=== PATIENT | male | born 1995 | race Caucasian/White ===

== ENCOUNTER 2017-05-24 23:53 | Emergency (ER) | payer SELFPAY ==
[2017-05-24] MEDS ORDERED: NORMAL SALINE 10 ML SYRINGE FLUSH IVP PRN (23:55)
--- NOTE | 2017-05-24 23:58 | PDOC ---
Syncope/Near-Syncope HPI - General Chief Complaint: Syncope / Near-Syncope Stated Complaint: SYNCOPE Date Seen by Provider: 05/24/17 Time Seen by Provider: 23:50 Source: POSITIVE: Patient, Other (friend) Exam Limitations: POSITIVE: No limitations Nurse's Notes Reviewed & Considered: Yes - History of Present Illness Initial Comments: The patient is a 21-year-old male who is brought to the emergency department by private vehicle after apparently passing out. He was apparently playing volleyball with his friends at [facility] today. He admits to having a drink there. He had apparently fallen and landed on his back. He subsequently had decided to go home. His friend states that he came home approximately a half an hour later and found the patient lying on the kitchen floor face down. He was not responding verbally at all at that time however was breathing and had a pulse. He started waking up some and his friend was able to get him into the car and bring him here to the emergency room. Patient states that he had just stood up to get a drink of water. He states he felt like his heart was pounding and he subsequently passed out. He states that he has the pounding heartbeat fairly frequently, at least once a day. By the time he arrived here in the emergency department he was awake and answering questions appropriately. He is complaining of headache. He does have blood on his face which appears to come from his nose. He reports some pain in his jaw. He is also having low back pain. He had fallen on his back while playing volleyball. He does however also have problems with his lower back even prior to tonight. He is generally healthy and does not take any medications. He states he had one drink tonight and denies illicit drug use. - Patient Home Medications Home Medications: Home Medications NK [No Home Medications Reported] 11/18/13 - Patient Allergies Allergies/Adverse Reactions: Allergies Allergy/AdvReac Type Severity Reaction Status Date / Time amoxicillin trihydrate Allergy Unknown NOT Verified 05/24/17 23:55 [From Amoxil] APPLICABLE Past Medical History - heen HEENT History: Other (please comment) Additional HEENT History: hx ruptured eardrum as a child Cardiovascular History: Denies History Respiratory History: Denies History Gastrointestinal History: Denies History Genitourinary History: Denies History Endocrine History: Denies History Musculoskeletal History: Denies History Prosthesis or Implant: No Neurological History: Denies History Blood Disorders: Denies History Psychiatric History: Depression, Other (please comment) Additional Psychiatric History: ATTEMPTED SUICIDE AT 13 YO History of Sexually Transmitted Diseases: No Cancer History: Denies History History of MDRO: Unknown History of Other Communicable Diseases: No Alcohol Use: Other Substance Use Type: None Previous Surgical History: Yes Type / Date of Surgery: TESTICULAR TORSION Anesthesia Reactions: No Malignant Hyperthermia: No Significant Family History: No pertinent family hx Past Medical History Reviewed: Reviewed - No Changes ROS - Limitations ROS Limitations: No Limitations Constitution: DENIES: Chills, Fever Cardiovascular: REPORTS: Heart Palpitations (He thinks he might of had some heart palpitations prior to this incident). DENIES: Chest Pain, Blood Pressure Problem, Edema Respiratory: DENIES: Cough Non Productive, Cough Productive, Hurts To Breathe, Shortness Of Breath Neurological: REPORTS: Headache. DENIES: Numbness, Weakness Gastrointestinal: DENIES: Abdominal Pain, Nausea, Vomitting Musculoskeletal: REPORTS: Back Pain (Lower back pain without radiation into his legs) Genitourinary: REPORTS: Denies Symptoms Eyes: REPORTS: Denies Symptoms ENT: REPORTS: Denies Symptoms Syncope / Near-Syncope Exam - General Appearance General Appearance: POSITIVE: Alert, Cooperative, No Acute Distress - HEENT HEENT: POSITIVE: Eyes Inspection Nml, Pharynx Inspect. Nml, PERRL, EOMI, Other ( He does have dried blood to his face which appears to come from his nose, he does have some mild tenderness over the temporomandibular joint bilaterally, no maxillary instability or loose teeth) - Neck / Back Neck/Back: POSITIVE: Supple, Non-Tender. NEGATIVE: Cervical Lymphadenopathy - Respiratory Respiratory: POSITIVE: No Respiratoy Distress, Breath Sounds Normal, Other (No chest wall pain) - Cardiovascular Cardiovascular: POSITIVE: Regular Rate and Rhythm, Heart Sounds Normal Peripheral Pulses: Dorsalis-pedis (R): 2+, Dorsalis-pedis (L): 2+ - Abdomen Abdomen: Soft: (All Quadrants), Denies Tenderness: (All Quadrants), No Distention: (All Quadrants) - Skin Skin: POSITIVE: Intact, No Rash - Extremities Extremity: Normal ROM: (All Extremities), Normal Inspection: (All Extremities) - Neuro / Psych Higher Functions: POSITIVE: Normal Speech, Normal Cognition Cranial Nerves: POSITIVE: Normal As Tested Sensorimotor: POSITIVE: No Motor Deficits, No Sensory Deficits Syncope/Near-Syncope Progress - Results Reviewed by me Xrays/CTs/US Reviewed by me: Yes Discussed with Radiologist: Yes Radiology Findings: CT scan of his head reveals no skull fracture or intracranial hemorrhage per radiologist. CT scan of the maxillofacial bones reveals no fracture per radiologist. CT scan of the cervical spine reveals no acute fracture per radiologist. CT scan of his abdomen and pelvis reveals no evidence of internal injury or fracture per radiologist. Lab Results Reviewed: Yes Lab Results:: Laboratory Results 05/24/17 05/25/17 Range/Units 23:52 01:43 WBC 9.48 (4.8-10.8) 10^3/uL RBC 4.54 L (4.70-6.10) 10^6/uL Hgb 15.5 (14.0-18.0) g/dL Hct 42.9 (42.0-52.0) % MCV 94.5 H (80-90) FL MCH 34.1 H (27-31) PG MCHC 36.1 (33-37) g/dL RDW Std Deviation 41.5 (39-50) fL RDW Coeff of Jose Luis 12.1 (11.5-14.5) % Plt Count 216 (140-350) 10*3/uL MPV 9.7 (7.4-12.2) FL Immature Gran % (Auto) 0.3 (0-5) % Neut % (Auto) 69.3 (50-80) % Lymph % (Auto) 21.7 (10-50) % [place] % (Auto) 7.9 (5-15) % Eos % (Auto) 0.5 (0-8) % Baso % (Auto) 0.3 (0-1) % Immature Gran # (Auto) 0.03 10*3/UL Neut # (Auto) 6.56 10*3/UL Lymph # (Auto) 2.06 10*3/uL [place] # (Auto) 0.75 (0.3-0.8) 10*3/UL Eos # (Auto) 0.05 10*3/UL Baso # (Auto) 0.03 10*3/UL WBC Morphology Comment Normal morphology (NORM) Plt Morphology Comment Normal morphology (NORM) RBC Morph Comment Normal morphology (NORM) Sodium 138 (135-145) meq/L Potassium 3.2 L (3.8-5.2) meq/L Chloride 102 (98-112) meq/L Carbon Dioxide 25 (23-33) meq/L Anion Gap 11 (5-20) BUN 16 (7-22) mg/dL Creatinine 1.2 (0.70-1.50) mg/dL Estimated GFR > 60 (>60 ml/min/1.73m(2)) BUN/Creatinine Ratio 13.33 (6-20) Glucose 88 (78-110) mg/dL Calculated Osmolality 285.0 (267-292) mOsm/kg Calcium 9.5 (8.7-10.7) mg/dL Total Bilirubin 0.8 (0.3-1.2) mg/dL AST 46 (21-57) IU/L ALT 41 (21-72) IU/L Alkaline Phosphatase 74 (38-126) IU/L Total Protein 7.7 (6.1-8.0) g/dL Albumin 4.7 (3.5-4.8) g/dL Globulin 3.1 (2.50-4.10) g/dL Albumin/Globulin Ratio 1.50 (1.3-2.0) mg/g Ur Collection Type Clean catch urine Urine Color Yellow Urine Clarity Clear (CLEAR) Urine pH 6.5 (5.0-8.5) Ur Specific [place] 1.003 (1.005-1.030) U Specif Grav (Refrac) 1.003 Urine Protein Negative (NEG) mg/dl Urine Glucose (UA) Negative (NEG) mg/dL Urine Ketones Negative (NEG) Urine Occult Blood Negative (NEG) Urine Nitrate Negative (NEG) Urine Bilirubin Negative (NEG) Urine Urobilinogen 0.2 (0.2) EU/dL Ur Leukocyte Esterase Negative (NEG) Ur Culture Indicated? Culture not set Urine Opiates Screen Negative (NEG) Ur Buprenorphine Negative (NEG) Ur Oxycodone Screen Negative (NEG) Urine Methadone Screen Negative (NEG) Ur Propoxyphene Screen Negative (NEG) Barbiturate Screen Negative (NEG) U Tricyclic Antidepress Negative (NEG) Phencyclidine Screen Negative (NEG) Amphetamines Screen Negative (NEG) U Methamphetamines Scrn Negative (NEG) Benzodiazepines Screen Negative (NEG) Cocaine Screen Negative (NEG) U Marijuana (THC) Screen Negative (NEG) Serum Alcohol < 10 (0-10) mg/dL EKG Interpreted/Reviewed By Me:: Yes EKG Interpretation:: POSITIVE: Normal Sinus Rhythm, Normal Rate, Normal QRS, Normal ST/T - Patient's Progress MDM / ED Course: The patient was evaluated in the emergency department after an apparent syncopal episode which occurred shortly after standing up to get a drink of water. His EKG here in the emergency department is normal. His lab work is all essentially unremarkable except for a slightly low potassium. CT scans of his head, facial bones, cervical spine, abdomen and pelvis and lumbar spine are all unremarkable. Vital signs remained stable and he is awake and alert. He is able to walk to the bathroom and urinate after CT without any difficulty. At this point the exact cause of his syncopal episode is not clear however could be some type of orthostatic hypotension from standing too fast, vagal reaction or possibly arrhythmia. The patient does report symptoms of palpitations fairly frequently and even daily. He appears to be stable for discharge home. He is advised to return to the emergency room if he develops any further passing out, any worsening or change in symptoms. He is advised to follow-up with the clinic in the next 2-3 days. Consideration for Holter monitor and/or echocardiogram. - Consult Counseled: POSITIVE: Patient, RE: Lab Results, RE: Radiology Results, RE: DX, RE : Need for F/U Patient Care Time - Estimated PCT Patient Care Time (In Minutes): 35 Vital Signs - Recent Vital Signs Vital Signs: Vital Signs (Last 8 hours) Temp Pulse Resp BP Pulse Ox 05/25/17 00:32 130/95 05/24/17 23:55 97.9 F 93 18 144/111 94 - VS Reviewed Vital Signs Reviewed: Yes Discharge Clinical Impression: Syncope Discharge Disposition: Discharged to Home Condition: Stable Patient Instructions Given at Discharge: Syncope (ED) Additional Instructions: The EKG done on your heart here in the emergency department was normal. Your blood work was all essentially normal except for a slightly low potassium which should not of caused her symptoms. We did do a CAT scan of your head, facial bones and neck which was all normal with no evidence of fracture or internal bleeding. The CAT scan of your lower back and internal organs was also normal and did not reveal any evidence of fracture. The exact cause of your passing out is unclear. This could have been related to low blood pressure from standing up too fast, overstimulation of the vagus nerve which is an autonomic nerve that controls her internal organs or possibly an irregular heartbeat. All of your testing done in the emergency department is reassuring currently. Would recommend follow-up with the clinic in the next 2-3 days. You'll likely need further testing which includes a Holter monitor to monitor your heart rhythm for a 24-hour period and possibly an echocardiogram which is an ultrasound of your heart. Recommend avoiding caffeine or other stimulants. Return to the emergency room if any further passing out, worsening or change in symptoms. Follow Up With: NONE,NONE [Primary Care Provider] -
[2017-05-25] MEDS: Sodium Chloride 0.9% 1,000 ML PRIMARY IV ONE (00:02)
--- NOTE | 2017-05-25 00:02 | EKG ---
[address] [address] Measurements Intervals [place] Rate: 85 P: 63 WA: 165 QRS: 61 QRSD: 100 T: 61 QT: 368 QTc: 410 Interpretive Statements SINUS RHYTHM WITH SINUS ARRHYTHMIA POSSIBLE LEFT VENTRICULAR HYPERTROPHY [VOLTAGE CRITERIA PLUS LAE OR QRS WIDENING] INTERPRETATION BASED ON A DEFAULT AGE OF 40 YEARS No previous ECG available for comparison Electronically Signed On 05-25-17 08:06:16 MDT by Wilman Butler MD [id number]
[2017-05-25 00:12] LABS: HEMATOCRIT 42.9 % (42.0-52.0); HEMOGLOBIN 15.5 g/dL (14.0-18.0); MEAN CORPUSCULAR HEMOGLOBIN 34.1 PG (27-31); MEAN CORPUSCULAR VOLUME 94.5 FL (80-90); RED BLOOD COUNT 4.54 10^6/uL (4.70-6.10)
[2017-05-25 00:13] LABS: BASOPHILS # (AUTO) 0.03 10*3/UL; BASOPHILS % (AUTO) 0.3 % (0-1); EOSINOPHILS # (AUTO) 0.05 10*3/UL; EOSINOPHILS % (AUTO) 0.5 % (0-8); LYMPHOCYTES # (AUTO) 2.06 10*3/uL; MEAN CORPUSCULAR HGB CONC 36.1 g/dL (33-37); MEAN PLATELET VOLUME 9.7 FL (7.4-12.2); MONOCYTES # (AUTO) 0.75 10*3/UL (0.3-0.8); MONOCYTES % (AUTO) 7.9 % (5-15); NEUTROPHILS # (AUTO) 6.56 10*3/UL; NEUTROPHILS % (AUTO) 69.3 % (50-80); PLATELET MORPHOLOGY COMMENT NORMAL MORPHOLOGY (NORM); RBC MORPHOLOGY COMMENT NORMAL MORPHOLOGY (NORM); WBC MORPHOLOGY COMMENT NORMAL MORPHOLOGY (NORM)
[2017-05-25 00:14] LABS: BLOOD UREA NITROGEN 16 mg/dL (7-22); BUN/CREATININE RATIO 13.33 (6-20); CALCIUM 9.5 mg/dL (8.7-10.7); EST GLOMERULAR FILTRATION > 60 (>60 ml/min/1.73m(2)); SERUM ALBUMIN 4.7 g/dL (3.5-4.8)
[2017-05-25 00:23] VITALS: RESP 18; TEMP 97.9
--- NOTE | 2017-05-25 01:29 | DI ---
HISTORY: Syncope episode. Bloody nose from the fall. COMPARISON: None available. TECHNIQUE: Unenhanced images of the brain were obtained and submitted for interpretation. FINDINGS: No acute intracranial hemorrhage. No mass effect or midline shift. The ventricles, sulci , and cisterns are within normal limits for age. The booth-white matter differentiation is preserved with no evidence of acute infarct. No aggressive osseous lesion or depressed skull fracture. Paranasal sinuses and mastoid air cells ar e clear. Vascular structures are intact. Orbits and facial soft tissues are unremarkable. IMPRESSION: 1. No acute intracranial findings.
--- NOTE | 2017-05-25 01:34 | DI ---
HISTORY: Syncope episode. Bloody nose from the fall. COMPARISON: None available. TECHNIQUE: Unenhanced images of the facial bones were obtained and submitted for interpretation. FINDINGS: There is no acute displaced fracture of the mandible, nasal bones, maxillary sinus ochoa, zygomatic arches, orbital ochoa, or lamina papyracea. The paranasal sinuses and mastoid air cells ar e clear. Orbits and facial soft tissues are within normal limits. IMPRESSION: 1. No acute facial bone fracture.
--- NOTE | 2017-05-25 01:37 | DI ---
HISTORY: Syncope episode. Bloody nose from the fall. Non-radiating neck pain. COMPARISON: None available. TECHNIQUE: Unenhanced images of the cervical spine were obtained and submitted for interpretation. FINDINGS: No acute fracture or malalignment of the cervical spine is present. There is normal align ment of the cervical lordosis. The paravertebral soft tissues are within normal limits. There are e neda multilevel degenerative endplate changes without significant osseous central canal stenosis or n eural foraminal narrowing. The imaged portions of the mastoid air cells are clear. There is no bulky cervical lymphadenopathy. The thyroid gland exhibits normal CT morphology. The lung apices are clear. IMPRESSION: 1. No acute fracture or malalignment of the cervical spine. 2. Straightening of the normal cervical lordosis which can be positional or secondary to muscle spasm induced by pain. 3. Early multilevel degenerative disc disease.
[2017-05-25 01:39] LABS: BILIRUBIN,URINE NEGATIVE (NEG); CLARITY,URINE CLEAR (CLEAR); COLOR,URINE YELLOW; GLUCOSE, URINE (UA) NEGATIVE (NEG); NITRATE,URINE NEGATIVE (NEG); OCCULT BLOOD,URINE NEGATIVE (NEG); PH,URINE 6.5 (5.0-8.5); PROTEIN,URINE NEGATIVE (NEG); UROBILINOGEN,URINE 0.2 EU/dL (0.2)
--- NOTE | 2017-05-25 01:41 | DI ---
HISTORY: Syncope episode. Bloody nose from the fall. Low back pain. COMPARISON: None available. TECHNIQUE: Enhanced images of the abdomen and pelvis were obtained and submitted for interpretation. FINDINGS: Positioning of the patient with arms at sides creates artifact that limits evaluation of f ine anatomic detail. Normal CT appearance of the liver, gallbladder, pancreas, spleen, kidneys, and adrenal glands. The u rinary bladder is significantly distended. Ureters are unremarkable. No radiopaque renal or collect ing system calculi. No evidence of obstructive uropathy. Hollow viscus organs demonstrate normal co urse and caliber. The appendix is within normal limits. There is no intraperitoneal free air or flu id. Vascular structures are intact. No abdominopelvic lymphadenopathy is present. There is no inguinal or umbilical hernia. The lung bases are clear. There are bilateral L5 pars defects without significant spondylolisthesis. Osseous structures are ot herwise within normal limits for age. IMPRESSION: 1. No CT evidence of acute intra-abdominal or pelvic pathology. 2. There are bilateral L5 pars defects without significant spondylolisthesis.
[2017-05-25 01:43] LABS: URINE SAMPLE TYPE CLEAN CATCH URINE; URINE SPECIFIC GRAVITY - MAN 1.003
[2017-05-25 01:49] LABS: AMPHETAMINE SCREEN NEGATIVE (NEG); CANNABINOID SCREEN,URINE NEGATIVE (NEG); COCAINE SCREEN NEGATIVE (NEG); METHADONE URINE SCREEN NEGATIVE (NEG); METHAMPHETAMINES SCREEN,URINE NEGATIVE (NEG); OPIATE SCREEN,URINE NEGATIVE (NEG)
== END 2017-05-25 02:14 | disposition home or self-care (01) ==
LOC: ER 23:53
DX: R55 Syncope and collapse (principal); M54.5 Low back pain; R68.84 Jaw pain; R51 Headache; R00.2 Palpitations; R04.0 Epistaxis
CPT/HCPCS: 70450; 70486; 72125; 74177; 80053; 80305; 80320; 81003; 82948; 85025; 93005; 93010; 96360; 99284; J7030

== ENCOUNTER → 2017-05-28 | Outpatient (CLI) | payer OTHER ==
--- NOTE | 2017-05-28 12:43 | EKG ---
[address] [address] Measurements Intervals [place] Rate: 49 P: 34 ME: 151 QRS: 63 QRSD: 102 T: 78 QT: 422 QTc: 392 Interpretive Statements SINUS BRADYCARDIA WITH OCCASIONAL VENTRICULAR PREMATURE COMPLEXES Compared to ECG 05/24/2017 23:55:08 Ventricular premature complex(es) now present Sinus rhythm no longer present Sinus arrhythmia no longer present Electronically Signed On 05-28-17 14:43:26 MDT by Daren Mon [id number]
[2017-05-28 12:45] LABS: BLOOD UREA NITROGEN 13 mg/dL (7-22); BUN/CREATININE RATIO 11.81 (6-20); CALCIUM 9.3 mg/dL (8.7-10.7); EST GLOMERULAR FILTRATION > 60 (>60 ml/min/1.73m(2)); SERUM ALBUMIN 4.4 g/dL (3.5-4.8)
[2017-05-28 13:52] LABS: HEMATOCRIT 44.2 % (42.0-52.0); HEMOGLOBIN 15.1 g/dL (14.0-18.0); MEAN CORPUSCULAR HEMOGLOBIN 33.3 PG (27-31); MEAN CORPUSCULAR HGB CONC 34.2 g/dL (33-37); MEAN CORPUSCULAR VOLUME 97.4 FL (80-90); MEAN PLATELET VOLUME 9.5 FL (7.4-12.2); RED BLOOD COUNT 4.54 10^6/uL (4.70-6.10)
[2017-05-28 13:55] LABS: BAND NEUTROPHILS % 0 % (0-10); BASOPHILS % (MANUAL) 1 % (0-1); EOSINOPHILS % (MANUAL) 5 % (0-8); LYMPHOCYTES % (MANUAL) 52 % (10-50); MONOCYTES % (MANUAL) 5 % (0-12); NEUTROPHILS % (MANUAL) 37 % (50-80)
[2017-05-28 13:56] LABS: PLATELET MORPHOLOGY COMMENT NORMAL MORPHOLOGY (NORM); RBC MORPHOLOGY COMMENT NORMAL MORPHOLOGY (NORM); WBC MORPHOLOGY COMMENT NORMAL MORPHOLOGY (NORM)
== END ==
LOC: MOB LAB 11:58
PROVIDERS: ATTEND Family Medicine
DX: R00.2 Palpitations (principal); R55 Syncope and collapse; R00.1 Bradycardia, unspecified
CPT/HCPCS: 36415; 80053; 84443; 85007; 93005; 93010

== ENCOUNTER → 2017-05-29 | Outpatient (CLI) | payer OTHER ==
--- NOTE | 2017-06-01 11:19 | HOLTER ---
[facility] Interpretive Statements No diary returned. One of the diary pushes is chest pain. Forty eight hour holter monitor done for syncopy and collapse. No acivity or symptom diary kept. There were [id number] beats recorded with [id number] normal beats. The average sinus heart rate was 75 with slowest rate of 41 and fastest sinus rate at 132 at 7:50 PM. There was one run of possible atrial fibrillation to rate of 163 at 12:23 AM probably during sleep.There were 237 PACs with 232 singlets, 1 pair and 1- 3 beat run. There were only 3 VPCs noted and no significant pauses. ST elevation compatible with early repolarization was seen in most tracings with 1-[address] depression with sinus rate of 118-122 and no recorded symptoms. IMP: Abnormal holter study with occassional PACs with brief 3-4 beat runs, probable paroxsymal atrial fibrillation to rate of [address] depression noted during sinus tachycardia to rate of 122. Suggest cardiac echo and treadmill stress test. Electronically Signed On 06-01-17 15:40:06 MDT by Daren Mon [id number]
== END ==
LOC: RT 23:45
PROVIDERS: ATTEND Family Medicine
DX: R55 Syncope and collapse (principal); R00.2 Palpitations
CPT/HCPCS: 93225; 93226; 93227